=== PATIENT | female | born 1970 | race African-American/Black ===

== ENCOUNTER 2018-06-20 11:18 | Emergency (ER) | payer BC ==
[~2018-06-20] VITALS: Ht 160 cm; Wt 99.8 kg
[~2018-06-20 11:18] MED LIST: LOSA1TAB25 PO
--- NOTE | 2018-06-20 11:54 | EKG ---
[facility] [address] [place] [address] Test Date: 2018-06-20 Test Time: 11:26:23 Pat Name: DEYVI FRANCO Department: Room: Gender: F Felt Finishing Supervisor: : 1970 Requested By: ESTEVAN BARNES Order Number: [id number] Reading MD: Alexandre Johnson Measurements Intervals [place] Rate: 70 P: 0 AL: 144 QRS: 29 QRSD: 70 T: 26 QT: 416 QTc: 452 Interpretive Statements SINUS RHYTHM Electronically Signed On 07-12-2018 12:14:33 CDT by Alexandre Johnson
[2018-06-20 11:59] LABS: BASO # 0.1 x10^3/uL (0.0-0.2); BASO % 1 % (0-3); EOS # 0.1 x10^3/uL (0.0-0.7); EOS % 1 % (0-3); HEMATOCRIT 39.2 % (36.0-47.0); HEMOGLOBIN 12.5 g/dL (12.0-15.5); LYMPH # 3.5 x10^3/uL (1.0-4.8); LYMPH % 31 % (24-48); MEAN CORPUSCULAR HEMOGLOBIN 27 pg (25-35); MEAN CORPUSCULAR HGB CONC 32 g/dL (31-37); MEAN CORPUSCULAR VOLUME 85 fL (79-100); MONO # 0.6 x10^3/uL (0.0-1.1); MONO % 6 % (0-9); NEUT % 62 % (31-73); PLATELET COUNT 408 x10^3/uL (140-400); RED BLOOD COUNT 4.63 x10^6/uL (3.50-5.40); RED CELL DISTRIBUTION WIDTH 13.7 % (11.5-14.5); WHITE BLOOD COUNT 11.4 x10^3/uL (4.0-11.0)
[2018-06-20] MEDS ORDERED: ASPIRIN 325 MG TABLET PO ONE (12:00)
[2018-06-20] MEDS ORDERED: IV NORMAL SALINE 1000ML BAG 1,000 ML IV ONE (12:00)
[2018-06-20 12:08] LABS: PROTHROMBIN TIME PATIENT 13.2 SEC (11.7-14.0)
[2018-06-20 12:18] LABS: CALCIUM 8.9 mg/dL (8.5-10.1); CREATININE 0.9 mg/dL (0.6-1.0); GFR 80.9; POTASSIUM 3.9 mmol/L (3.5-5.1)
[2018-06-20 12:24] LABS: ALBUMIN 3.2 g/dL (3.4-5.0); ALBUMIN/GLOBULIN RATIO 0.7 (1.0-1.7); MAGNESIUM 2.1 mg/dL (1.8-2.4); TOTAL BILIRUBIN 0.5 mg/dL (0.2-1.0)
[2018-06-20 12:32] LABS: CREATINE KINASE 135 U/L (26-192)
--- NOTE | 2018-06-20 12:55 | RAD ---
Two-view chest dated 06/20/2018. Comparison made to 10/22/2007. CLINICAL INDICATION: Chest pain and left arm pain started today. FINDINGS: PA and lateral views of the chest were obtained. Heart and mediastinal contours are stable. Lungs are somewhat hyperinflated but otherwise clear. No consolidation or pleural effusion. No pneumothorax. IMPRESSION: No acute radiographic abnormality. Electronically signed by: Mert Solano MD (06/20/2018 12:52 PM) [facility]
[2018-06-20] MEDS ORDERED: FAMOTIDINE 20 MG/2 ML VIAL IVP ONE (13:00)
[2018-06-20] MEDS ORDERED: LIDO:MAALOX 1:1 20 ML SINGLE DOSE. PO ONE (13:00)
--- NOTE | 2018-06-20 13:43 | PHYS DOC ---
Past Medical History Past Medical History: GERD, Hypertension Past Surgical History: Hysterectomy, Tubal ligation Additional Past Surgical Histo: right ankle Alcohol Use: Occasionally Drug Use: None Adult General Chief Complaint Chief Complaint: CHEST PAIN HPI HPI Patient is a 48 year old female who presents with chest pain since approximately 9:30 this morning. She states she was resting in her recliner when the pain began. She describes the pain as being sharp, intermittent and up to a 9/10 in severity. She states the pain radiates to her left shoulder and back. She states the pain is unchanged since arriving. She states she is more comfortable when supine. She denies any nausea vomiting fever or chills. She denies any burning or metallic taste in mouth. She admits to increased headache and diarrhea this morning as well. No other complaints at this time. Review of Systems Review of Systems Constitutional: Denies fever or chills [] Eyes: Denies change in visual acuity, redness, or eye pain [] HENT: Denies nasal congestion or sore throat [] Respiratory: Denies cough or shortness of breath [] Cardiovascular: Sharp, intermittent chest pain. radiating to left shoulder. GI: Denies abdominal pain, nausea, vomiting, bloody stools or diarrhea [] : Denies dysuria or hematuria [] Musculoskeletal: Upper back pain that began with the chest pain. Integument: Denies rash or skin lesions [] Neurologic: Denies headache, focal weakness or sensory changes [] Complete systems were reviewed and found to be within normal limits, except as documented in this note. Current Medications Current Medications Current Medications Medications (Trade) Dose Ordered Sig/[facility] Start Time Stop Time Status Last Admin Dose Admin Aspirin (Marcos Aspirin) 325 mg 1X ONCE 06/20/18 12:00 06/20/18 12:01 DC 06/20/18 11:55 325 MG Famotidine (Pepcid Vial) 20 mg 1X ONCE 06/20/18 13:00 06/20/18 13:01 DC 06/20/18 13:39 20 MG Fentanyl Citrate (Fentanyl 2ml Vial) 50 mcg 1X ONCE 06/20/18 14:00 06/20/18 14:05 DC 06/20/18 14:15 50 MCG Multi-Ingredient Mouthwash/Gargle (Gi Cocktail) 20 ml 1X ONCE 06/20/18 13:00 06/20/18 13:01 DC 06/20/18 13:39 20 ML Sodium Chloride 1,000 ml @ 1,000 mls/hr 1X ONCE 06/20/18 12:00 06/20/18 12:59 DC 06/20/18 11:55 1,000 MLS/HR Allergies Allergies Allergies Coded Allergies Type Severity Reaction Last Updated Verified No Known Drug Allergies 05/09/15 No Physical Exam Physical Exam Constitutional: Well developed, well nourished, no acute distress, non-toxic appearance. [] HENT: Normocephalic, atraumatic, bilateral external ears normal, oropharynx moist, no oral exudates, nose normal. [] Eyes: EOMI, conjunctiva normal, no discharge. [] Cardiovascular: Heart rate regular rhythm, no murmur [] Lungs & Thorax: Bilateral breath sounds clear to auscultation [] Abdomen: soft, no tenderness, no masses, no pulsatile masses. [] Skin: Warm, dry, no erythema, no rash. [] Back: Diffuse, mild tenderness, no CVA tenderness. [] Extremities: No tenderness, no cyanosis, no clubbing, ROM intact, no edema. [] Neurologic: Alert and oriented X 3, normal motor function, normal sensory function, no focal deficits noted. [] Psychologic: Affect normal, judgement normal, mood normal. [] Current Patient Data Vital Signs Vital Signs Date Time Temp Pulse Resp B/P (MAP) Pulse Ox O2 Delivery O2 Flow Rate FiO2 06/20/18 16:00 62 145/81 (102) 100 Room Air 06/20/18 14:15 16 06/20/18 11:39 98.4 98.4 Lab Values Laboratory Tests Test 06/20/18 11:33 06/20/18 13:35 06/20/18 14:57 White Blood Count 11.4 x10^3/uL (4.0-11.0) H Red Blood Count 4.63 x10^6/uL (3.50-5.40) Hemoglobin 12.5 g/dL (12.0-15.5) Hematocrit 39.2 % (36.0-47.0) Mean Corpuscular Volume 85 fL (79-100) Mean Corpuscular Hemoglobin 27 pg (25-35) Mean Corpuscular Hemoglobin Concent 32 g/dL (31-37) Red Cell Distribution Width 13.7 % (11.5-14.5) Platelet Count 408 x10^3/uL (140-400) H Neutrophils (%) (Auto) 62 % (31-73) Lymphocytes (%) (Auto) 31 % (24-48) Monocytes (%) (Auto) 6 % (0-9) Eosinophils (%) (Auto) 1 % (0-3) Basophils (%) (Auto) 1 % (0-3) Neutrophils # (Auto) 7.0 x10^3uL (1.8-7.7) Lymphocytes # (Auto) 3.5 x10^3/uL (1.0-4.8) Monocytes # (Auto) 0.6 x10^3/uL (0.0-1.1) Eosinophils # (Auto) 0.1 x10^3/uL (0.0-0.7) Basophils # (Auto) 0.1 x10^3/uL (0.0-0.2) Prothrombin Time 13.2 SEC (11.7-14.0) Prothrombin Time INR 1.0 (0.8-1.1) PTT 34 SEC (24-38) D-Dimer (Candelaria) 0.47 ug/mlFEU (0.00-0.50) Sodium Level 140 mmol/L (136-145) Potassium Level 3.9 mmol/L (3.5-5.1) Chloride Level 103 mmol/L (98-107) Carbon Dioxide Level 26 mmol/L (21-32) Anion Gap 11 (6-14) Blood Urea Nitrogen 11 mg/dL (7-20) Creatinine 0.9 mg/dL (0.6-1.0) Estimated GFR (Cockcroft-Gault) 80.9 BUN/Creatinine Ratio 12 (6-20) Glucose Level 98 mg/dL (70-99) Calcium Level 8.9 mg/dL (8.5-10.1) Magnesium Level 2.1 mg/dL (1.8-2.4) Total Bilirubin 0.5 mg/dL (0.2-1.0) Aspartate Amino Transferase (AST) 23 U/L (15-37) Alanine Aminotransferase (ALT) 24 U/L (14-59) Alkaline Phosphatase 63 U/L (46-116) Creatine Kinase 135 U/L (26-192) Creatine Kinase MB (Mass) < 0.5 ng/mL (0.0-3.6) Creatine Kinase MB Relative Index % (0-4) Troponin I Quantitative < 0.017 ng/mL (0.000-0.055) 0.020 ng/mL (0.000-0.055) DS-Qyi-A-Type Natriuretic Peptide 19 pg/mL (0-124) Total Protein 8.0 g/dL (6.4-8.2) Albumin 3.2 g/dL (3.4-5.0) L Albumin/Globulin Ratio 0.7 (1.0-1.7) L Lipase 111 U/L (73-393) Urine Collection Type Unknown Urine Color Yellow Urine Clarity Clear Urine pH 8.0 Urine Specific [place] 1.010 Urine Protein Negative mg/dL (NEG-TRACE) Urine Glucose (UA) Negative mg/dL (NEG) Urine Ketones (Stick) Negative mg/dL (NEG) Urine Blood Negative (NEG) Urine Nitrite Negative (NEG) Urine Bilirubin Negative (NEG) Urine Urobilinogen Dipstick 1.0 mg/dL (0.2 mg/dL) Urine Leukocyte Esterase Negative (NEG) Urine RBC 0 /HPF (0-2) Urine WBC Occ /HPF (0-4) Urine Squamous Epithelial Cells Mod /LPF Urine Bacteria 0 /HPF (0-FEW) Laboratory Tests 06/20/18 11:33 Laboratory Tests 06/20/18 11:33 EKG EKG 06/20/2018 @11:26 showed Normal sinus rhythm at [address] elevations. No other abnormalities. Radiology/Procedures Radiology/Procedures PROCEDURE: CHEST PA & LATERAL Two-view chest dated 06/20/2018. Comparison made to 10/22/2007. CLINICAL INDICATION: Chest pain and left arm pain started today. FINDINGS: PA and lateral views of the chest were obtained. Heart and mediastinal contours are stable. Lungs are somewhat hyperinflated but otherwise clear. No consolidation or pleural effusion. No pneumothorax. IMPRESSION: No acute radiographic abnormality. Electronically signed by: Mert Solano MD (06/20/2018 12:52 PM) [facility] DICTATED and SIGNED BY: MERT SOLANO MD DATE: 06/20/18 0572 Course & Med Decision Making Course & Med Decision Making Patient is a 48-year-old female with a past medical history of hypertension and GERD who presents with chest pain that began this morning at rest. EKG was reassuring. Chest x-ray ordered and found no acute abnormalities. Initial troponin was within normal range. Patient administered IV fluids, Zofran, GI cocktail, ASA, and 50mg of Fentanyl 1x for non-relenting pain. Patient was ad vised to be admitted due to continuing pain and number of risk factors. However, patient refused admittance and would like to go home. Patient understands she is going AMA. Dragon Disclaimer Dragon Disclaimer This electronic medical record was generated, in whole or in part, using a voice recognition dictation system. Departure Departure Impression: Primary Impression: Chest pain Disposition: HOME, SELF-CARE Condition: STABLE Referrals: GUI GARY MD (PCP) SURENDRA LAWRENCE MD, SCOTT S MD Patient Instructions: Chest Pain (Nonspecific) Scripts Famotidine (PEPCID) 20 Mg Tablet 20 MG PO BID, #14 TAB Prov: MERT BARNES DO 06/20/18 Problem Qualifiers Primary Impression: Chest pain Chest pain type: unspecified Qualified Codes: R07.9 - Chest pain, unspecified MERT BARNES DO June 20, 2018 13:43
[2018-06-20 13:53] LABS: BILIRUBIN,URINE NEGATIVE (NEG); CLARITY,URINE CLEAR; COLOR,URINE YELLOW; NITRITE,URINE NEGATIVE (NEG); PROTEIN,URINE NEGATIVE (NEG-TRACE)
[2018-06-20] MEDS ORDERED: fentaNYL PF VIAL 100 MCG/2 ML VIAL IV ONE (14:00)
[2018-06-20 14:03] LABS: BACTERIA,URINE 0 /HPF (0-FEW); RBC,URINE 0 /HPF (0-2); SQUAMOUS EPITHELIAL CELL,UR MOD /LPF; WBC,URINE OCC /HPF (0-4)
[2018-06-20] MEDS ORDERED: FAMO-63 PO (15:45)
[2018-06-20 16:00] VITALS: BP 145/81
== END 2018-06-20 16:13 | disposition home or self-care (01) ==
LOC: ER 11:18
DX: R07.89 Other chest pain (principal); M54.6 Pain in thoracic spine; R19.7 Diarrhea, unspecified; K21.9 Gastro-esophageal reflux disease without esophagitis; I10 Essential (primary) hypertension; Z90.710 Acquired absence of both cervix and uterus; Z98.51 Tubal ligation status; Z79.82 Long term (current) use of aspirin
CPT/HCPCS: 36415; 71046; 80053; 81001; 82553; 83690; 83735; 83880; 84484; 85025; 85379; 85610; 85730; 93005; 96361; 96374; 96375; 99285; J3010; J3490; J7030

== ENCOUNTER 2018-12-01 21:02 | Observation (INO) | payer BC ==
[~2018-12-01] VITALS: Ht 162.6 cm; Wt 108.6 kg
[~2018-12-01 21:02] MED LIST changes: +FAMO-63 PO
[2018-12-01] MEDS ORDERED: ASPIRIN 325 MG TABLET PO ONE (21:30)
[2018-12-01] MEDS ORDERED: IV NORMAL SALINE 1000ML BAG 1,000 ML IV ONE (21:30)
[2018-12-01 21:45] LABS: BASO # 0.1 x10^3/uL (0.0-0.2); BASO % 1 % (0-3); EOS # 0.2 x10^3/uL (0.0-0.7); EOS % 3 % (0-3); HEMATOCRIT 38.2 % (36.0-47.0); HEMOGLOBIN 12.5 g/dL (12.0-15.5); LYMPH # 3.5 x10^3/uL (1.0-4.8); LYMPH % 37 % (24-48); MEAN CORPUSCULAR HEMOGLOBIN 27 pg (25-35); MEAN CORPUSCULAR HGB CONC 33 g/dL (31-37); MEAN CORPUSCULAR VOLUME 84 fL (79-100); MONO # 0.7 x10^3/uL (0.0-1.1); MONO % 7 % (0-9); NEUT % 52 % (31-73); PLATELET COUNT 381 x10^3/uL (140-400); RED BLOOD COUNT 4.56 x10^6/uL (3.50-5.40); RED CELL DISTRIBUTION WIDTH 13.9 % (11.5-14.5); WHITE BLOOD COUNT 9.6 x10^3/uL (4.0-11.0)
[2018-12-01 21:54] LABS: CALCIUM 8.6 mg/dL (8.5-10.1); GFR 71.6; POTASSIUM 3.6 mmol/L (3.5-5.1); PROTHROMBIN TIME PATIENT 12.4 SEC (11.7-14.0)
[2018-12-01 21:59] LABS: ALBUMIN/GLOBULIN RATIO 0.6 (1.0-1.7); TOTAL BILIRUBIN 0.2 mg/dL (0.2-1.0); TOTAL PROTEIN 7.7 g/dL (6.4-8.2)
[2018-12-01] MEDS ORDERED: fentaNYL PF VIAL 100 MCG/2 ML VIAL IV ONE (22:00)
[2018-12-01 22:03] LABS: CREATINE KINASE 150 U/L (26-192)
[2018-12-01] MEDS ORDERED: ONDANSETRON PF 4 MG/2 ML VIAL. IV PRN (22:30)
[2018-12-01] MEDS ORDERED: MORPHINE SULFATE 4 MG/ML VIAL. IV PRN (22:30)
[2018-12-01] MEDS ORDERED: CONTRAST GIVEN. MC PRN (22:45)
--- NOTE | 2018-12-01 22:48 | RAD ---
Exam: CTA chest with contrast INDICATION: Chest pain TECHNIQUE: Sequential axial images through the chest obtained following the administration of 100 mL of Omni 350 IV contrast. Sagittal and coronal reformatted images were reconstructed from the axial data and reviewed. Comparisons: None FINDINGS: Visualized portions of the thyroid are unremarkable. No enlarged mediastinal lymph nodes are identified. Several calcified hilar lymph nodes are noted. Heart size is normal. No pericardial effusion. Thoracic aorta has a normal course and caliber. Pulmonary artery is not enlarged. No pulmonary embolus identified within the main, lobar or segmental pulmonary arteries. Airways are patent. Strandy opacities at the dependent portion the lung bases. 3 mm nodule left upper lobe series 3 image 36. No pleural effusion or thickening. Visualized upper abdomen is unremarkable. No suspicious osseous lesions or acute fractures. IMPRESSION: 1. No pulmonary embolus identified within the main, lobar, segmental pulmonary arteries. 2. A 3 mm nodule in the left upper lobe. In a low-risk patient no further follow-up imaging is recommended. In a high-risk patient optional one-year follow-up can BE performed. Exposure: One or more of the following in the visualized dose reduction techniques were utilized for this examination: 1. Automated exposure control 2. Adjustment of the MA and/or KV according to patient size 3. Use of iterative of reconstructive technique Electronically signed by: Coral Chavis MD (12/01/2018 10:45 PM) [facility]
[2018-12-01] MEDS ORDERED: FAMOTIDINE 20 MG/2 ML VIAL IVP ONE (23:00)
[2018-12-01] MEDS ORDERED: ONDANSETRON PF 4 MG/2 ML VIAL. IVP ONE (23:00)
[2018-12-01] MEDS ORDERED: IOHEXOL 350 MG/ML 100 ML VIAL. IV ONE (23:00)
[2018-12-01] MEDS ORDERED: MORPHINE SULFATE 4 MG/ML VIAL. IV ONE (23:00)
--- NOTE | 2018-12-01 23:02 | PHYS DOC ---
Past Medical History Past Medical History: Hypertension Past Surgical History: Hysterectomy Additional Past Surgical Histo: right ankle Additional Information: Nonsmoker Alcohol Use: None Drug Use: None Adult General Chief Complaint Chief Complaint: CHEST PAIN HPI HPI 48-year-old female presents with one-week history of intermittent left-sided chest pain. Reports sharp in nature and worse with deep inspiration. Denies cough. Reports shortness of breath. Reports diaphoresis. Denies nausea or vomiting. Denies leg swelling or calf tenderness. Patient with significant risk factors including family history of CAD in multiple members in there late 40s and early 50s. Patient reports sister with history of DVT. Denies trauma. Denies fever or chills. Review of Systems Review of Systems Constitutional: Denies fever or chills Eyes: Denies redness or eye pain HENT: Denies nasal congestion or sore throat Respiratory: Denies cough; reports shortness of breath Cardiovascular: Reports chest pain; denies palpitations GI: Denies abdominal pain, nausea, or vomiting : Denies dysuria or hematuria Musculoskeletal: Denies back pain or joint pain Integument: Denies rash or skin lesions; reports diaphoresis Neurologic: Denies headache, focal weakness or sensory changes Complete systems were reviewed and found to be within normal limits, except as documented in this note. Current Medications Current Medications Current Medications Medications (Trade) Dose Ordered Sig/[facility] Start Time Stop Time Status Last Admin Dose Admin Aspirin (Marcos Aspirin) 325 mg 1X ONCE 12/01/18 21:30 12/01/18 21:31 DC 12/01/18 21:36 325 MG Fentanyl Citrate (Fentanyl 2ml Vial) 50 mcg 1X ONCE 12/01/18 22:00 12/01/18 22:01 DC 12/01/18 21:50 50 MCG Sodium Chloride 1,000 ml @ 1,000 mls/hr 1X ONCE 12/01/18 21:30 12/01/18 22:29 DC 12/01/18 21:36 1,000 MLS/HR Allergies Allergies Allergies Coded Allergies Type Severity Reaction Last Updated Verified No Known Drug Allergies 05/09/15 No Physical Exam Physical Exam Constitutional: Well developed, well nourished, no acute distress, non-toxic appearance HENT: Normocephalic, atraumatic, oropharynx moist Eyes: Conjunctiva normal, no discharge Neck: Normal range of motion, no tenderness, supple Cardiovascular: Heart rate normal, regular rhythm Lungs & Thorax: Bilateral breath sounds clear to auscultation, no wheezing Abdomen: Soft, no tenderness Skin: Warm, dry, no erythema, no rash Extremities: No tenderness, ROM intact, no edema Neurologic: Alert and oriented X 3, no focal deficits noted Psychologic: Affect anxious, judgement normal Current Patient Data Vital Signs Vital Signs Date Time Temp Pulse Resp B/P (MAP) Pulse Ox O2 Delivery O2 Flow Rate FiO2 12/01/18 21:50 24 97 12/01/18 21:10 98.5 65 171/79 (109) Room Air 98.5 Lab Values Laboratory Tests Test 12/01/18 21:20 White Blood Count 9.6 x10^3/uL (4.0-11.0) Red Blood Count 4.56 x10^6/uL (3.50-5.40) Hemoglobin 12.5 g/dL (12.0-15.5) Hematocrit 38.2 % (36.0-47.0) Mean Corpuscular Volume 84 fL (79-100) Mean Corpuscular Hemoglobin 27 pg (25-35) Mean Corpuscular Hemoglobin Concent 33 g/dL (31-37) Red Cell Distribution Width 13.9 % (11.5-14.5) Platelet Count 381 x10^3/uL (140-400) Neutrophils (%) (Auto) 52 % (31-73) Lymphocytes (%) (Auto) 37 % (24-48) Monocytes (%) (Auto) 7 % (0-9) Eosinophils (%) (Auto) 3 % (0-3) Basophils (%) (Auto) 1 % (0-3) Neutrophils # (Auto) 5.0 x10^3/uL (1.8-7.7) Lymphocytes # (Auto) 3.5 x10^3/uL (1.0-4.8) Monocytes # (Auto) 0.7 x10^3/uL (0.0-1.1) Eosinophils # (Auto) 0.2 x10^3/uL (0.0-0.7) Basophils # (Auto) 0.1 x10^3/uL (0.0-0.2) Prothrombin Time 12.4 SEC (11.7-14.0) Prothrombin Time INR 1.0 (0.8-1.1) Activated Partial Thromboplast Time 33 SEC (24-38) Sodium Level 143 mmol/L (136-145) Potassium Level 3.6 mmol/L (3.5-5.1) Chloride Level 107 mmol/L (98-107) Carbon Dioxide Level 27 mmol/L (21-32) Anion Gap 9 (6-14) Blood Urea Nitrogen 18 mg/dL (7-20) Creatinine 1.0 mg/dL (0.6-1.0) Estimated GFR (Cockcroft-Gault) 71.6 BUN/Creatinine Ratio 18 (6-20) Glucose Level 121 mg/dL (70-99) H Calcium Level 8.6 mg/dL (8.5-10.1) Magnesium Level 2.0 mg/dL (1.8-2.4) Total Bilirubin 0.2 mg/dL (0.2-1.0) Aspartate Amino Transferase (AST) 17 U/L (15-37) Alanine Aminotransferase (ALT) 17 U/L (14-59) Alkaline Phosphatase 54 U/L (46-116) Creatine Kinase 150 U/L (26-192) Creatine Kinase MB (Mass) 0.5 ng/mL (0.0-3.6) Creatine Kinase MB Relative Index % (0-4) Troponin I Quantitative < 0.017 ng/mL (0.000-0.055) UB-Wcw-S-Type Natriuretic Peptide 35 pg/mL (0-124) Total Protein 7.7 g/dL (6.4-8.2) Albumin 3.0 g/dL (3.4-5.0) L Albumin/Globulin Ratio 0.6 (1.0-1.7) L Lipase 104 U/L (73-393) Laboratory Tests 12/01/18 21:20 Laboratory Tests 12/01/18 21:20 EKG EKG @2106 NSR at 65bpm, No ST elevation @2305 NSR at 58bpm, NO ST elevation, baseline artifact, low voltage QRS Radiology/Procedures Radiology/Procedures PROCEDURE: CT ANGIOGRAPHY CHEST Exam: CTA chest with contrast INDICATION: Chest pain TECHNIQUE: Sequential axial images through the chest obtained following the administration of 100 mL of Omni 350 IV contrast. Sagittal and coronal reformatted images were reconstructed from the axial data and reviewed. Comparisons: None FINDINGS: Visualized portions of the thyroid are unremarkable. No enlarged mediastinal lymph nodes are identified. Several calcified hilar lymph nodes are noted. Heart size is normal. No pericardial effusion. Thoracic aorta has a normal course and caliber. Pulmonary artery is not enlarged. No pulmonary embolus identified within the main, lobar or segmental pulmonary arteries. Airways are patent. Strandy opacities at the dependent portion the lung bases. 3 mm nodule left upper lobe series 3 image 36. No pleural effusion or thickening. Visualized upper abdomen is unremarkable. No suspicious osseous lesions or acute fractures. IMPRESSION: 1. No pulmonary embolus identified within the main, lobar, segmental pulmonary arteries. 2. A 3 mm nodule in the left upper lobe. In a low-risk patient no further follow-up imaging is recommended. In a high-risk patient optional one-year follow-up can BE performed. Exposure: One or more of the following in the visualized dose reduction techniques were utilized for this examination: 1. Automated exposure control 2. Adjustment of the MA and/or KV according to patient size 3. Use of iterative of reconstructive technique Electronically signed by: Coral Chavis MD (12/01/2018 10:45 PM) [facility] Course & Med Decision Making Course & Med Decision Making Pertinent Labs and Imaging studies reviewed. (See chart for details) Patient presents with left-sided chest pain which is pleuritic in nature. Denies known trauma. Patient seen back in June 2018 for same and was offered admission given significant family history of CAD. Patient at that time elected to leave AGAINST MEDICAL ADVICE. EKG stable. Labs obtained and posted to chart. Initial troponin within normal limits. CTA chest without signs of acute PE. Incidental pulmonary nodule appreciated. A copy of CT results provided to patient to give to PCP for future reevaluation.Patient requiring admission for further evaluation and treatment. Discussed with Dr. Cortés (hospitalist) who is in agreement with admission. Discussed findings and plan with patient, who acknowledges understanding and agreement. Dragon Disclaimer Dragon Disclaimer This electronic medical record was generated, in whole or in part, using a voice recognition dictation system. Departure Departure Impression: Primary Impression: Chest pain Disposition: ADMITTED INPATIENT Admitting Physician: MALOU (Milana) Condition: STABLE Referrals: GUI GARY MD (PCP) The HEART Score for CP Pts HEART Score for Chest Pain: HEART Score for Chest Pain Response (Comments) Value History Moderately Suspicious 1 ECG Normal 0 Age >45 - < 65 1 Risk Factors 1 or 2 Risk Factors 1 Troponin < Normal Limit 0 Total 3 Risk Factors: Risk Factors: DM, Current or recent (<one month) smoker, HTN, HLP, family history of CAD, obesity. Risk Scores: Score 0 - 3: 2.5% MACE over next 6 weeks - Discharge Home Score 4 - 6: 20.3% MACE over next 6 weeks - Admit for Clinical Observation Score 7 - 10: 72.7% MACE over next 6 weeks - Early Invasive Strategies Problem Qualifiers Primary Impression: Chest pain Chest pain type: unspecified Qualified Codes: R07.9 - Chest pain, unspecified ESTEVAN BARNES DO Dec 01, 2018 23:01
[2018-12-01] MEDS ORDERED: diphenhydrAMINE 50 MG/ML VIAL IVP ONE (23:45)
[2018-12-01] MEDS ORDERED: METOCLOPRAMIDE HCL 10 MG/2 ML VIAL. IVP ONE (23:45)
[2018-12-02 00:15] VITALS: BP 157/65
--- NOTE | 2018-12-02 00:45 | EKG ---
[facility] [address] [place] [address] Test Date: 2018-12-02 Test Time: 01:41:21 Pat Name: DEYVI ARAIZA Department: Room: 208 1 Gender: F Lead Web Developer: JOHN : 1970 Requested By: ESTEVAN BARNES Order Number: [id number] Reading MD: Andres Fitzpatrick MD Measurements Intervals [place] Rate: 63 P: 0 MT: 158 QRS: 28 QRSD: 68 T: 36 QT: 468 QTc: 482 Interpretive Statements SINUS RHYTHM PROLONGED QT Electronically Signed On 12-16-2018 9:25:11 DIRECTOR OF FOOD AND NUTRITION by Andres Fitzpatrick MD
--- NOTE | 2018-12-02 01:17 | NUR ---
Pt arrived to unit per cart. Pt ambulated to bed with standby assist vs obtained and stable assessment completed poc explained. Pt drowsy at time of assessment bed alarm placed call belinda bloom reach will resume care and continue to monitor pt, Pt c/o pain to mid chest 6/10 pt medicated prior to transfer to unit.
[2018-12-02 03:15] VITALS: BP 142/77
[2018-12-02 06:41] LABS: CHOLESTEROL/HDL RATIO 3.1
[2018-12-02 07:00] VITALS: BP 133/70
--- NOTE | 2018-12-02 07:04 | EKG ---
[facility] [address] [place] [address] Test Date: 2018-12-01 Test Time: 21:06:53 Pat Name: DEYVI ARAIZA Department: Room: 208 1 Gender: F Grader Green Meat: : 1970 Requested By: ESTEVAN BARNES Order Number: [id number] Reading MD: Andres Fitzpatrick MD Measurements Intervals [place] Rate: 65 P: 0 [place]: 146 QRS: 9 QRSD: 70 T: 36 QT: 404 QTc: 420 Interpretive Statements SINUS RHYTHM Electronically Signed On 12-02-2018 15:03:30 CDT by Andres Fitzpatrick MD
--- NOTE | 2018-12-02 07:54 | EKG ---
[facility] [address] [place] [address] Test Date: 2018-12-01 Test Time: 23:05:12 Pat Name: DEYVI ARAIZA Department: Room: 208 1 Gender: F Commercial Collector: : 1970 Requested By: DONAVON HOFFMAN Order Number: [id number] Reading MD: Andres Fitzpatrick MD Measurements Intervals [place] Rate: 58 P: OR: QRS: 19 QRSD: 72 T: 20 QT: 482 QTc: 477 Interpretive Statements SR Q3L-ERAXYSAA ST/T CHANGES BASELINE ARTIFACT Electronically Signed On 12-16-2018 9:16:25 WEIGHT COUNT OPERATOR by Andres Fitzpatrick MD
[2018-12-02 11:00] VITALS: BP 144/77
--- NOTE | 2018-12-02 11:14 | PDOC2 ---
PERNELL BROOKS MANAGEMENT ACCOUNTS MANAGER 12/02/18 1114: CARDIAC CONSULT DATE OF CONSULT Date of Consult DATE: 12/02/18 TIME: 11:10 REASON FOR CONSULT Reason for Consult: Chest pain REFERRING PHYSICIAN Referring Physician: Dr. Magallon SOURCE Source: Chart review, Patient HISTORY OF PRESENT ILLNESS HISTORY OF PRESENT ILLNESS This is a 48 yo female who presented with complaints of chest pain. Patient reports pain has been present for the last couple of days. Located under her left breast and radiates around her left side. Has been constant. Associated with nausea. No dizziness, diaphoresis, palpitations, or shortness of breath. Pain worsened with deep breathing and with movement of her left side. Tenderness is also noted under her left breast. PAST MEDICAL HISTORY Cardiovascular: HTN GI: GERD Psych: Anxiety, Depression Musculoskeletal: Osteoarthritis PAST SURGICAL HISTORY Past Surgical History: Hysterectomy FAMILY HISTORY Family History: Coronary Artery Disease (mother, sister ), Stroke (father ) SOCIAL HISTORY Smoke: No ALCOHOL: none Drugs: None Lives: with Family CURRENT MEDICATIONS CURRENT MEDICATIONS Current Medications Medications (Trade) Dose Ordered Sig/Dora Route PRN Reason Start Time Stop Time Status Last Admin Dose Admin Aspirin (Marcos Aspirin) 325 mg 1X ONCE PO 12/01/18 21:30 12/01/18 21:31 DC 12/01/18 21:36 Sodium Chloride 1,000 ml @ 1,000 mls/hr 1X ONCE IV 12/01/18 21:30 12/01/18 22:29 DC 12/01/18 21:36 Fentanyl Citrate (Fentanyl 2ml Vial) 50 mcg 1X ONCE IV 12/01/18 22:00 12/01/18 22:01 DC 12/01/18 21:50 Morphine Sulfate (Morphine Sulfate) 4 mg 1X ONCE IV 12/01/18 23:00 12/01/18 23:01 DC 12/01/18 22:42 Famotidine (Pepcid Vial) 20 mg 1X ONCE IVP 12/01/18 23:00 12/01/18 23:01 DC 12/01/18 22:42 Ondansetron HCl (Zofran) 4 mg 1X ONCE IVP 12/01/18 23:00 12/01/18 23:01 DC 12/01/18 22:41 Iohexol (Omnipaque 350 Mg/ml) 100 ml 1X ONCE IV 12/01/18 23:00 12/01/18 23:01 DC 12/01/18 22:39 Morphine Sulfate (Morphine Sulfate) 4 mg PRN Q4HRS PRN IV SEVERE PAIN 7-10 12/01/18 22:30 12/02/18 08:26 Diphenhydramine HCl (Benadryl) 25 mg 1X ONCE IVP 12/01/18 23:45 12/01/18 23:46 DC 12/01/18 23:54 Metoclopramide HCl (Reglan Vial) 10 mg 1X ONCE IVP 12/01/18 23:45 12/01/18 23:46 DC 12/01/18 23:54 ALLERGIES ALLERGIES: Coded Allergies: No Known Drug Allergies (Unverified , 05/09/15) ROS Review of System 14 point ROS conducted with pertinent positives noted above in HPI. PHYSICAL EXAM General: Alert, Oriented X3, Cooperative, No acute distress HEENT: Atraumatic Lungs: Clear to auscultation, Normal air movement Heart: Regular rate, Normal S1, Normal S2, Other (tenderness under left breast upon palpitation) Abdomen: Soft, No tenderness Extremities: No edema, Normal pulses Skin: No breakdown, No significant lesion Neuro: Normal speech, Sensation intact Psych/Mental Status: Mental status NL, Mood NL MUSCULOSKELETAL: Osteoarthritic changes both hands VITALS/I&O VITALS/I&O: Vital Signs Date Time Temp Pulse Resp B/P (MAP) Pulse Ox O2 Delivery O2 Flow Rate FiO2 12/02/18 08:26 Room Air 12/02/18 07:00 97.6 62 16 133/70 (91) 95 97.6 I & O 12/01/18 12/01/18 12/02/18 15:00 23:00 07:00 Intake Total 0 ml Output Total 300 ml Balance -300 ml LABS Lab: Laboratory Tests Test 12/01/18 21:20 12/02/18 01:35 12/02/18 04:40 White Blood Count 9.6 x10^3/uL (4.0-11.0) Red Blood Count 4.56 x10^6/uL (3.50-5.40) Hemoglobin 12.5 g/dL (12.0-15.5) Hematocrit 38.2 % (36.0-47.0) Mean Corpuscular Volume 84 fL (79-100) Mean Corpuscular Hemoglobin 27 pg (25-35) Mean Corpuscular Hemoglobin Concent 33 g/dL (31-37) Red Cell Distribution Width 13.9 % (11.5-14.5) Platelet Count 381 x10^3/uL (140-400) Neutrophils (%) (Auto) 52 % (31-73) Lymphocytes (%) (Auto) 37 % (24-48) Monocytes (%) (Auto) 7 % (0-9) Eosinophils (%) (Auto) 3 % (0-3) Basophils (%) (Auto) 1 % (0-3) Neutrophils # (Auto) 5.0 x10^3/uL (1.8-7.7) Lymphocytes # (Auto) 3.5 x10^3/uL (1.0-4.8) Monocytes # (Auto) 0.7 x10^3/uL (0.0-1.1) Eosinophils # (Auto) 0.2 x10^3/uL (0.0-0.7) Basophils # (Auto) 0.1 x10^3/uL (0.0-0.2) Prothrombin Time 12.4 SEC (11.7-14.0) Prothrombin Time INR 1.0 (0.8-1.1) Activated Partial Thromboplast Time 33 SEC (24-38) Sodium Level 143 mmol/L (136-145) Potassium Level 3.6 mmol/L (3.5-5.1) Chloride Level 107 mmol/L (98-107) Carbon Dioxide Level 27 mmol/L (21-32) Anion Gap 9 (6-14) Blood Urea Nitrogen 18 mg/dL (7-20) Creatinine 1.0 mg/dL (0.6-1.0) Estimated GFR (Cockcroft-Gault) 71.6 BUN/Creatinine Ratio 18 (6-20) Glucose Level 121 mg/dL (70-99) H Calcium Level 8.6 mg/dL (8.5-10.1) Magnesium Level 2.0 mg/dL (1.8-2.4) Total Bilirubin 0.2 mg/dL (0.2-1.0) Aspartate Amino Transferase (AST) 17 U/L (15-37) Alanine Aminotransferase (ALT) 17 U/L (14-59) Alkaline Phosphatase 54 U/L (46-116) Creatine Kinase 150 U/L (26-192) Creatine Kinase MB (Mass) 0.5 ng/mL (0.0-3.6) Creatine Kinase MB Relative Index % (0-4) Troponin I Quantitative < 0.017 ng/mL (0.000-0.055) < 0.017 ng/mL (0.000-0.055) < 0.017 ng/mL (0.000-0.055) UJ-Ijp-W-Type Natriuretic Peptide 35 pg/mL (0-124) Total Protein 7.7 g/dL (6.4-8.2) Albumin 3.0 g/dL (3.4-5.0) L Albumin/Globulin Ratio 0.6 (1.0-1.7) L Lipase 104 U/L (73-393) Triglycerides Level 46 mg/dL (0-150) Cholesterol Level 169 mg/dL (0-200) LDL Cholesterol, Calculated 106 mg/dL (0-100) H VLDL Cholesterol, Calculated 9 mg/dL (0-40) Non-HDL Cholesterol Calculated 115 mg/dL (0-129) HDL Cholesterol 54 mg/dL (40-60) Cholesterol/HDL Ratio 3.1 Laboratory Tests 12/01/18 21:20 Laboratory Tests 12/01/18 21:20 ASSESSMENT/PLAN ASSESSMENT/PLAN 1. Chest pain, atypical. AMI ruled out. Most probably MSK in origin 2. Hypertension; better controlled 3. GERD 4. Family h/o CAD Recommendations Echo to assess LV systolic function Lipids Consider outpatient MPI given risk factors. May discharge from a CV standpoint if echo WNL SURENDRA LAWRENCE MD 12/02/18 2319: CARDIAC CONSULT ASSESSMENT/PLAN ASSESSMENT/PLAN Pt. seen and examined. Agree with above [facility] note. 48 y.o woman with non-cardiac chest pain. EKG/Trops unremarkable. Ok to DC from CV standpoint. thanks PERNELL BROOKS APRN Dec 02, 2018 11:14 SURENDRA LAWRENCE MD Dec 02, 2018 23:19
--- NOTE | 2018-12-02 12:03 | PDOC1 ---
History and Physical Date of Admission Date of Admission DATE: 12/02/18 TIME: 11:59 Identification/Chief Complaint Chief Complaint Chest pain Source Source: Patient History of Present Illness History of Present Illness Ms Tran is a 48yo F w/ PMHx HTN who p/w one-week history of intermittent left-sided chest pain. Reports sharp in nature and worse with deep inspiration. Denies cough. Reports shortness of breath. Reports diaphoresis. Denies nausea or vomiting. Denies leg swelling or calf tenderness. Chest pain is under her left breast and wraps around her left side and radiates posteriorly into her neck. 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 Patient with significant risk factors including family history of CAD in multiple members in there late 40s and early 50s. Patient reports sister with history of DVT. Denies trauma. Denies fever or chills. Negative CTPA noted in ED. EKG x2 reviewed both NSR. Labs show LDL 106, glucose 121 fasting and troponin x3 negative. Past Medical History Cardiovascular: HTN GI: GERD Past Surgical History Past Surgical History: Hysterectomy Current Medications Current Medications Current Medications Aspirin (Marcos Aspirin) 325 mg 1X ONCE PO Last administered on 12/01/18at 21:36; Start 12/01/18 at 21:30; Stop 12/01/18 at 21:31; Status DC Sodium Chloride 1,000 ml @ 1,000 mls/hr 1X ONCE IV Last administered on 12/01/18at 21:36; Start 12/01/18 at 21:30; Stop 12/01/18 at 22:29; Status DC Fentanyl Citrate (Fentanyl 2ml Vial) 50 mcg 1X ONCE IV Last administered on 12/01/18at 21:50; Start 12/01/18 at 22:00; Stop 12/01/18 at 22:01; Status DC Morphine Sulfate (Morphine Sulfate) 4 mg 1X ONCE IV Last administered on 12/01/18at 22:42; Start 12/01/18 at 23:00; Stop 12/01/18 at 23:01; Status DC Famotidine (Pepcid Vial) 20 mg 1X ONCE IVP Last administered on 12/01/18at 22:42; Start 12/01/18 at 23:00; Stop 12/01/18 at 23:01; Status DC Ondansetron HCl (Zofran) 4 mg 1X ONCE IVP Last administered on 12/01/18at 22:41; Start 12/01/18 at 23:00; Stop 12/01/18 at 23:01; Status DC Iohexol (Omnipaque 350 Mg/ml) 100 ml 1X ONCE IV Last administered on 12/01/18at 22:39; Start 12/01/18 at 23:00; Stop 12/01/18 at 23:01; Status DC Ondansetron HCl (Zofran) 4 mg PRN Q8HRS PRN IV NAUSEA/VOMITING 1ST CHOICE; Start 12/01/18 at 22:30; Stop 12/02/18 at 22:29 Morphine Sulfate (Morphine Sulfate) 4 mg PRN Q4HRS PRN IV SEVERE PAIN 7-10 Last administered on 12/02/18at 08:26; Start 12/01/18 at 22:30 Info (CONTRAST GIVEN -- Rx MONITORING) 1 each PRN DAILY PRN MC SEE COMMENTS; Start 12/01/18 at 22:45; Stop 12/03/18 at 22:44 Diphenhydramine HCl (Benadryl) 25 mg 1X ONCE IVP Last administered on 12/01/18at 23:54; Start 12/01/18 at 23:45; Stop 12/01/18 at 23:46; Status DC Metoclopramide HCl (Reglan Vial) 10 mg 1X ONCE IVP Last administered on 12/01/18at 23:54; Start 12/01/18 at 23:45; Stop 12/01/18 at 23:46; Status DC Active Scripts Active Reported Losartan-Hctz 100-12.5 Mg Tab (Losartan/Hydrochlorothiazide) 1 Each Tablet 1 Tab PO DAILY Allergies Allergies: Coded Allergies: No Known Drug Allergies (Unverified , 05/09/15) Vitals Vitals Vital Signs Date Time Temp Pulse Resp B/P (MAP) Pulse Ox O2 Delivery O2 Flow Rate FiO2 12/02/18 11:00 98.0 60 16 144/77 (99) 95 Room Air 98.0 Labs Labs Laboratory Tests Test 12/01/18 21:20 12/02/18 01:35 12/02/18 04:40 White Blood Count 9.6 x10^3/uL (4.0-11.0) Red Blood Count 4.56 x10^6/uL (3.50-5.40) Hemoglobin 12.5 g/dL (12.0-15.5) Hematocrit 38.2 % (36.0-47.0) Mean Corpuscular Volume 84 fL (79-100) Mean Corpuscular Hemoglobin 27 pg (25-35) Mean Corpuscular Hemoglobin Concent 33 g/dL (31-37) Red Cell Distribution Width 13.9 % (11.5-14.5) Platelet Count 381 x10^3/uL (140-400) Neutrophils (%) (Auto) 52 % (31-73) Lymphocytes (%) (Auto) 37 % (24-48) Monocytes (%) (Auto) 7 % (0-9) Eosinophils (%) (Auto) 3 % (0-3) Basophils (%) (Auto) 1 % (0-3) Neutrophils # (Auto) 5.0 x10^3/uL (1.8-7.7) Lymphocytes # (Auto) 3.5 x10^3/uL (1.0-4.8) Monocytes # (Auto) 0.7 x10^3/uL (0.0-1.1) Eosinophils # (Auto) 0.2 x10^3/uL (0.0-0.7) Basophils # (Auto) 0.1 x10^3/uL (0.0-0.2) Prothrombin Time 12.4 SEC (11.7-14.0) Prothromb Time International Ratio 1.0 (0.8-1.1) Activated Partial Thromboplast Time 33 SEC (24-38) Sodium Level 143 mmol/L (136-145) Potassium Level 3.6 mmol/L (3.5-5.1) Chloride Level 107 mmol/L (98-107) Carbon Dioxide Level 27 mmol/L (21-32) Anion Gap 9 (6-14) Blood Urea Nitrogen 18 mg/dL (7-20) Creatinine 1.0 mg/dL (0.6-1.0) Estimated GFR (Cockcroft-Gault) 71.6 BUN/Creatinine Ratio 18 (6-20) Glucose Level 121 mg/dL (70-99) Calcium Level 8.6 mg/dL (8.5-10.1) Magnesium Level 2.0 mg/dL (1.8-2.4) Total Bilirubin 0.2 mg/dL (0.2-1.0) Aspartate Amino Transf (AST/SGOT) 17 U/L (15-37) Alanine Aminotransferase (ALT/SGPT) 17 U/L (14-59) Alkaline Phosphatase 54 U/L (46-116) Creatine Kinase 150 U/L (26-192) Creatine Kinase MB (Mass) 0.5 ng/mL (0.0-3.6) Creatine Kinase MB Relative Index % (0-4) Troponin I Quantitative < 0.017 ng/mL (0.000-0.055) < 0.017 ng/mL (0.000-0.055) < 0.017 ng/mL (0.000-0.055) FU-Glx-I-Type Natriuretic Peptide 35 pg/mL (0-124) Total Protein 7.7 g/dL (6.4-8.2) Albumin 3.0 g/dL (3.4-5.0) Albumin/Globulin Ratio 0.6 (1.0-1.7) Lipase 104 U/L (73-393) Triglycerides Level 46 mg/dL (0-150) Cholesterol Level 169 mg/dL (0-200) LDL Cholesterol, Calculated 106 mg/dL (0-100) VLDL Cholesterol, Calculated 9 mg/dL (0-40) Non-HDL Cholesterol Calculated 115 mg/dL (0-129) HDL Cholesterol 54 mg/dL (40-60) Cholesterol/HDL Ratio 3.1 Laboratory Tests Test 12/01/18 21:20 12/02/18 01:35 12/02/18 04:40 White Blood Count 9.6 x10^3/uL (4.0-11.0) Red Blood Count 4.56 x10^6/uL (3.50-5.40) Hemoglobin 12.5 g/dL (12.0-15.5) Hematocrit 38.2 % (36.0-47.0) Mean Corpuscular Volume 84 fL (79-100) Mean Corpuscular Hemoglobin 27 pg (25-35) Mean Corpuscular Hemoglobin Concent 33 g/dL (31-37) Red Cell Distribution Width 13.9 % (11.5-14.5) Platelet Count 381 x10^3/uL (140-400) Neutrophils (%) (Auto) 52 % (31-73) Lymphocytes (%) (Auto) 37 % (24-48) Monocytes (%) (Auto) 7 % (0-9) Eosinophils (%) (Auto) 3 % (0-3) Basophils (%) (Auto) 1 % (0-3) Neutrophils # (Auto) 5.0 x10^3/uL (1.8-7.7) Lymphocytes # (Auto) 3.5 x10^3/uL (1.0-4.8) Monocytes # (Auto) 0.7 x10^3/uL (0.0-1.1) Eosinophils # (Auto) 0.2 x10^3/uL (0.0-0.7) Basophils # (Auto) 0.1 x10^3/uL (0.0-0.2) Prothrombin Time 12.4 SEC (11.7-14.0) Prothromb Time International Ratio 1.0 (0.8-1.1) Activated Partial Thromboplast Time 33 SEC (24-38) Sodium Level 143 mmol/L (136-145) Potassium Level 3.6 mmol/L (3.5-5.1) Chloride Level 107 mmol/L (98-107) Carbon Dioxide Level 27 mmol/L (21-32) Anion Gap 9 (6-14) Blood Urea Nitrogen 18 mg/dL (7-20) Creatinine 1.0 mg/dL (0.6-1.0) Estimated GFR (Cockcroft-Gault) 71.6 BUN/Creatinine Ratio 18 (6-20) Glucose Level 121 mg/dL (70-99) Calcium Level 8.6 mg/dL (8.5-10.1) Magnesium Level 2.0 mg/dL (1.8-2.4) Total Bilirubin 0.2 mg/dL (0.2-1.0) Aspartate Amino Transf (AST/SGOT) 17 U/L (15-37) Alanine Aminotransferase (ALT/SGPT) 17 U/L (14-59) Alkaline Phosphatase 54 U/L (46-116) Creatine Kinase 150 U/L (26-192) Creatine Kinase MB (Mass) 0.5 ng/mL (0.0-3.6) Creatine Kinase MB Relative Index % (0-4) Troponin I Quantitative < 0.017 ng/mL (0.000-0.055) < 0.017 ng/mL (0.000-0.055) < 0.017 ng/mL (0.000-0.055) FW-Odi-N-Type Natriuretic Peptide 35 pg/mL (0-124) Total Protein 7.7 g/dL (6.4-8.2) Albumin 3.0 g/dL (3.4-5.0) Albumin/Globulin Ratio 0.6 (1.0-1.7) Lipase 104 U/L (73-393) Triglycerides Level 46 mg/dL (0-150) Cholesterol Level 169 mg/dL (0-200) LDL Cholesterol, Calculated 106 mg/dL (0-100) VLDL Cholesterol, Calculated 9 mg/dL (0-40) Non-HDL Cholesterol Calculated 115 mg/dL (0-129) HDL Cholesterol 54 mg/dL (40-60) Cholesterol/HDL Ratio 3.1 Images Images CTPA - 1. No pulmonary embolus identified within the main, lobar, segmental pulmonary arteries. 2. A 3 mm nodule in the left upper lobe. In a low-risk patient no further follow-up imaging is recommended. In a high-risk patient optional one-year foll ow-up can BE performed. VTE Prophylaxis Ordered VTE Prophylaxis Devices: Yes VTE Pharmacological Prophylaxi: Yes Assessment/Plan Assessment/Plan A/P: Chest pain - this seems MSK in origin, but with her family history, age > 45 and HTN history needs further risk stratification with cardiology consultation and imaging at the very least. Echo to assess LV systolic function.Outpatient MPI HTN - Will cont meds HLD - with no other risk factors medical management is not indicated, should follow mediterranean diet. GERD - ok for H2 sue Muscular spasms - will start on flexeril and NSAIDs FEN - NPO PPX - ambulatory FULL CODE Observation for chest pain, will likely be able to d/c later today WAQAS JAIME MD Dec 02, 2018 12:02
--- NOTE | 2018-12-02 12:18 | NUR ---
SS following for discharge planning. SS reviewed pt chart. Pt is from home with spouse and is currently on room air. SS will continue to follow for discharge planning.
[2018-12-02] MEDS ORDERED: KETOROLAC 30 MG/ML VIAL. IVP ONE (12:30)
[2018-12-02] MEDS ORDERED: CYCL10TA2 PO (14:34)
[2018-12-02] MEDS ORDERED: CYCLOBENZAPRINE 10 MG TABLET. PO PRN (14:45)
[2018-12-02 15:00] VITALS: BP 158/81
--- NOTE | 2018-12-02 15:03 | CARD ---
MR#: [id number] Date of Study: 12/02/2018 Ordering Physician: PERNELL BROOKS, Referring Physician: PERNELL BROOKS, Tech: Petra Ahn [facility] APPROVED REPORT EXAM: Two-dimensional and M-mode echocardiogram with Doppler and color Doppler. Other Information Quality : Technically LimitedHR: 53bpm Rhythm : BradycardiaTechnically limited study due to body habitus. INDICATION Chest Pain 2D DIMENSIONS RVDd2.6 (2.9-3.5cm)Left Atrium(2D)3.0 (1.6-4.0cm) IVSd1.0 (0.7-1.1cm)Aortic Root(2D)2.8 (2.0-3.7cm) LVDd4.2 (3.9-5.9cm)LVOT Diameter2.0 (1.8-2.4cm) PWd1.1 (0.7-1.1cm)LVDs2.9 (2.5-4.0cm) FS (%) 31.3 %SV46.7 ml LVEF(%)59.5 (>50%) M-Mode DIMENSIONS Left Atrium(MM)3.46 (2.5-4.0cm)Aortic Root2.89 (2.2-3.7cm) Aortic Valve AoV Peak Boris.97.3cm/sAoV VTI21.9cm AO Peak GR.3.8mmHgLVOT Peak Boris.77.9cm/s AO Mean GR.2mmHgAVA (VMAX)2.49cm2 LAVERNE (VTI)2.55yk1QY P 1/2 Vvyw0956rs Mitral Valve MV E Lehohhak015.5cm/sMV DECEL NATH236mg MV A Nfexcurn13.0cm/sE/A Ratio1.2 Pulmonary Valve PV Peak Fjvgmwvx01.6cm/s LEFT VENTRICLE The left ventricle is normal size. There is normal left ventricular wall thickness. The left ventricu lar systolic function is normal. The Ejection Fraction is 55-60%. There is normal LV segmental wall m otion. RIGHT VENTRICLE The right ventricle is normal size. There is normal right ventricular wall thickness. The right ventr icular systolic function is normal. ATRIA The left atrium size is normal. The right atrium size is normal. The interatrial septum is intact wit h no evidence for an atrial septal defect or patent foramen ovale as noted on 2-D or Doppler imaging. AORTIC VALVE The aortic valve is probably trileaflet. The aortic valve is not well visualized. Doppler and Color F low revealed trace aortic regurgitation. There is no significant aortic valvular stenosis. MITRAL VALVE The mitral valve is normal in structure and function. There is no evidence of mitral valve prolapse. There is no mitral valve stenosis. Doppler and Color-flow revealed trace mitral regurgitation. TRICUSPID VALVE The tricuspid valve is not well visualized. Doppler and Color Flow revealed no tricuspid valve regurg itation noted. There is no tricuspid valve prolapse or vegetation. There is no tricuspid valve stenos is. PULMONIC VALVE The pulmonic valve is not well visualized. GREAT VESSELS The aortic root is normal in size. The ascending aorta is normal in size. The IVC is normal in size a nd collapses >50% with inspiration. PERICARDIAL EFFUSION There is no evidence of significant pericardial effusion. Critical Notification Critical Value: No <Conclusion> The left ventricular systolic function is normal. The Ejection Fraction is 55-60%. There is normal LV segmental wall motion. Trace mitral regurgitation. There is no evidence of significant pericardial effusion. Signed by : Alexandre Johnson, Electronically Approved : 12/02/2018 15:03:15
--- NOTE | 2018-12-02 15:59 | PDOC3 ---
Discharge Summary Visit Information Date of Admission: Dec 01, 2018 Date of Discharge: Dec 02, 2018 Admitting Diagnosis: Chest pain Final Diagnosis MSK pain Brief Hospital Course Allergies Allergies Coded Allergies Type Severity Reaction Last Updated Verified No Known Drug Allergies 05/09/15 No Vital Signs Vital Signs Date Time Temp Pulse Resp B/P (MAP) Pulse Ox O2 Delivery O2 Flow Rate FiO2 12/02/18 15:00 98.2 59 16 158/81 (106) 95 Room Air 98.2 Lab Results Laboratory Tests Test 12/01/18 21:20 12/02/18 01:35 12/02/18 04:40 White Blood Count 9.6 x10^3/uL (4.0-11.0) Red Blood Count 4.56 x10^6/uL (3.50-5.40) Hemoglobin 12.5 g/dL (12.0-15.5) Hematocrit 38.2 % (36.0-47.0) Mean Corpuscular Volume 84 fL (79-100) Mean Corpuscular Hemoglobin 27 pg (25-35) Mean Corpuscular Hemoglobin Concent 33 g/dL (31-37) Red Cell Distribution Width 13.9 % (11.5-14.5) Platelet Count 381 x10^3/uL (140-400) Neutrophils (%) (Auto) 52 % (31-73) Lymphocytes (%) (Auto) 37 % (24-48) Monocytes (%) (Auto) 7 % (0-9) Eosinophils (%) (Auto) 3 % (0-3) Basophils (%) (Auto) 1 % (0-3) Neutrophils # (Auto) 5.0 x10^3/uL (1.8-7.7) Lymphocytes # (Auto) 3.5 x10^3/uL (1.0-4.8) Monocytes # (Auto) 0.7 x10^3/uL (0.0-1.1) Eosinophils # (Auto) 0.2 x10^3/uL (0.0-0.7) Basophils # (Auto) 0.1 x10^3/uL (0.0-0.2) Prothrombin Time 12.4 SEC (11.7-14.0) Prothromb Time International Ratio 1.0 (0.8-1.1) Activated Partial Thromboplast Time 33 SEC (24-38) Sodium Level 143 mmol/L (136-145) Potassium Level 3.6 mmol/L (3.5-5.1) Chloride Level 107 mmol/L (98-107) Carbon Dioxide Level 27 mmol/L (21-32) Anion Gap 9 (6-14) Blood Urea Nitrogen 18 mg/dL (7-20) Creatinine 1.0 mg/dL (0.6-1.0) Estimated GFR (Cockcroft-Gault) 71.6 BUN/Creatinine Ratio 18 (6-20) Glucose Level 121 mg/dL (70-99) Calcium Level 8.6 mg/dL (8.5-10.1) Magnesium Level 2.0 mg/dL (1.8-2.4) Total Bilirubin 0.2 mg/dL (0.2-1.0) Aspartate Amino Transf (AST/SGOT) 17 U/L (15-37) Alanine Aminotransferase (ALT/SGPT) 17 U/L (14-59) Alkaline Phosphatase 54 U/L (46-116) Creatine Kinase 150 U/L (26-192) Creatine Kinase MB (Mass) 0.5 ng/mL (0.0-3.6) Creatine Kinase MB Relative Index % (0-4) Troponin I Quantitative < 0.017 ng/mL (0.000-0.055) < 0.017 ng/mL (0.000-0.055) < 0.017 ng/mL (0.000-0.055) PO-Mmz-L-Type Natriuretic Peptide 35 pg/mL (0-124) Total Protein 7.7 g/dL (6.4-8.2) Albumin 3.0 g/dL (3.4-5.0) Albumin/Globulin Ratio 0.6 (1.0-1.7) Lipase 104 U/L (73-393) Triglycerides Level 46 mg/dL (0-150) Cholesterol Level 169 mg/dL (0-200) LDL Cholesterol, Calculated 106 mg/dL (0-100) VLDL Cholesterol, Calculated 9 mg/dL (0-40) Non-HDL Cholesterol Calculated 115 mg/dL (0-129) HDL Cholesterol 54 mg/dL (40-60) Cholesterol/HDL Ratio 3.1 Laboratory Tests Test 12/01/18 21:20 12/02/18 01:35 12/02/18 04:40 White Blood Count 9.6 x10^3/uL (4.0-11.0) Red Blood Count 4.56 x10^6/uL (3.50-5.40) Hemoglobin 12.5 g/dL (12.0-15.5) Hematocrit 38.2 % (36.0-47.0) Mean Corpuscular Volume 84 fL (79-100) Mean Corpuscular Hemoglobin 27 pg (25-35) Mean Corpuscular Hemoglobin Concent 33 g/dL (31-37) Red Cell Distribution Width 13.9 % (11.5-14.5) Platelet Count 381 x10^3/uL (140-400) Neutrophils (%) (Auto) 52 % (31-73) Lymphocytes (%) (Auto) 37 % (24-48) Monocytes (%) (Auto) 7 % (0-9) Eosinophils (%) (Auto) 3 % (0-3) Basophils (%) (Auto) 1 % (0-3) Neutrophils # (Auto) 5.0 x10^3/uL (1.8-7.7) Lymphocytes # (Auto) 3.5 x10^3/uL (1.0-4.8) Monocytes # (Auto) 0.7 x10^3/uL (0.0-1.1) Eosinophils # (Auto) 0.2 x10^3/uL (0.0-0.7) Basophils # (Auto) 0.1 x10^3/uL (0.0-0.2) Prothrombin Time 12.4 SEC (11.7-14.0) Prothromb Time International Ratio 1.0 (0.8-1.1) Activated Partial Thromboplast Time 33 SEC (24-38) Sodium Level 143 mmol/L (136-145) Potassium Level 3.6 mmol/L (3.5-5.1) Chloride Level 107 mmol/L (98-107) Carbon Dioxide Level 27 mmol/L (21-32) Anion Gap 9 (6-14) Blood Urea Nitrogen 18 mg/dL (7-20) Creatinine 1.0 mg/dL (0.6-1.0) Estimated GFR (Cockcroft-Gault) 71.6 BUN/Creatinine Ratio 18 (6-20) Glucose Level 121 mg/dL (70-99) Calcium Level 8.6 mg/dL (8.5-10.1) Magnesium Level 2.0 mg/dL (1.8-2.4) Total Bilirubin 0.2 mg/dL (0.2-1.0) Aspartate Amino Transf (AST/SGOT) 17 U/L (15-37) Alanine Aminotransferase (ALT/SGPT) 17 U/L (14-59) Alkaline Phosphatase 54 U/L (46-116) Creatine Kinase 150 U/L (26-192) Creatine Kinase MB (Mass) 0.5 ng/mL (0.0-3.6) Creatine Kinase MB Relative Index % (0-4) Troponin I Quantitative < 0.017 ng/mL (0.000-0.055) < 0.017 ng/mL (0.000-0.055) < 0.017 ng/mL (0.000-0.055) LD-Ipw-K-Type Natriuretic Peptide 35 pg/mL (0-124) Total Protein 7.7 g/dL (6.4-8.2) Albumin 3.0 g/dL (3.4-5.0) Albumin/Globulin Ratio 0.6 (1.0-1.7) Lipase 104 U/L (73-393) Triglycerides Level 46 mg/dL (0-150) Cholesterol Level 169 mg/dL (0-200) LDL Cholesterol, Calculated 106 mg/dL (0-100) VLDL Cholesterol, Calculated 9 mg/dL (0-40) Non-HDL Cholesterol Calculated 115 mg/dL (0-129) HDL Cholesterol 54 mg/dL (40-60) Cholesterol/HDL Ratio 3.1 Brief Hospital Course Ms Tran is a 48yo F w/ PMHx HTN who p/w one-week history of intermittent left-sided chest pain. Reports sharp in nature and worse with deep inspiration. Denies cough. Reports shortness of breath. Reports diaphoresis. Denies nausea or vomiting. Denies leg swelling or calf tenderness. Chest pain is under her left breast and wraps around her left side and radiates posteriorly into her neck. 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 Patient with significant risk factors including family history of CAD in multiple members in there late 40s and early 50s. Patient reports sister with history of DVT. Denies trauma. Denies fever or chills. Negative CTPA noted in ED. EKG x2 reviewed both NSR. Labs show LDL 106, glucose 121 fasting and troponin x3 negative. A/P: Chest pain - this seems MSK in origin, but with her family history, age > 45 and HTN history needs further risk stratification with cardiology consultation and imaging at the very least. Echo to assess LV systolic function.Outpatient MPI HTN - Will cont meds HLD - with no other risk factors medical management is not indicated, should follow mediterranean diet. GERD - ok for H2 sue Muscular spasms - will start on flexeril and NSAIDs ECHO - The left ventricular systolic function is normal. The Ejection Fraction is 55-60%. There is normal LV segmental wall motion. Trace mitral regurgitation. There is no evidence of significant pericardial effusion. Seen by cardiology - will f/u outpatient for MPI. Muscle relaxants and NSAIDs ok Greater than 135 minutes for same day admit and d/c Discharge Information Condition at Discharge: Improved Follow Up: Weeks (1) Disposition/Orders: D/C to Home Scheduled Cyclobenzaprine Hcl (Cyclobenzaprine Hcl) 10 Mg Tablet, 1 TAB PO QHS for Left shoulder muscle spasms for 10 Days, #10 Prescribed by: WAQAS JAIME MD on 12/02/18 1434 Losartan/Hydrochlorothiazide (Losartan-Hctz 100-12.5 Mg Tab) 1 Each Tablet, 1 TAB PO DAILY, #30 Ref 5 (Reported) Entered as Reported by: CAROL WYATT on 05/09/152019 WAQAS JAIME MD Dec 02, 2018 15:59
--- NOTE | 2018-12-02 17:00 | NUR ---
Discharge Note: DEYVI ARAIZA Discharge instructions and discharge home medications reviewed with Patient and a copy given. All questions have been answered and understanding verbalized. The following instructions and handouts were given: CP, Flexeril, mms strain Discontinued lines and drains: Peripheral IV intact. Patient discharged to Home or Self Care with Spouse via Wheelchair
== END 2018-12-02 17:00 | disposition home or self-care (01) ==
LOC: ER 21:02 → 2 NORTH 22:20
PROVIDERS: ADMIT Family Medicine; ATTEND Family Medicine
DX: R07.89 Other chest pain (principal); E78.5 Hyperlipidemia, unspecified; I10 Essential (primary) hypertension; K21.9 Gastro-esophageal reflux disease without esophagitis; M62.838 Other muscle spasm; Z82.3 Family history of stroke; Z82.49 Family history of ischemic heart disease and other diseases of the circulatory system; Z90.710 Acquired absence of both cervix and uterus
CPT/HCPCS: 36415; 71275; 80053; 80061; 82553; 83690; 83735; 83880; 84484; 85025; 85610; 85730; 93005; 93306; 96374; 96375; 96376; 99284; G0378; J1200; J1885; J2270; J2405; J2765; J3010; J3490; J7030; Q9967; G0379

== ENCOUNTER → 2020-12-27 | Day surgery (SDC) | payer BC ==
[~2020-12-27] VITALS: Ht 160 cm; Wt 105.4 kg
[~2020-12-27] MED LIST changes: +CYCL10TA19 PO; +HYDROmorphone 2 MG/ML VIAL IVP PRN; +IV RINGERS,LACTATED 1000ML 1,000 ML IV SCH; +LIDOCAINE 2% PF 5 ML VIAL. ONE; +MORPHINE SULFATE 2 MG/ML INJ. IVP PRN; +ONDANSETRON PF 4 MG/2 ML VIAL. ONE; +PROCHLORPERAZINE 10 MG/2 ML VIAL. IVP PRN; +PROPOFOL 10 MG/ML (20ML) VIAL. IV ONE; +fentaNYL PF VIAL 100 MCG/2 ML VIAL IVP PRN
[2020-12-27 12:46] VITALS: BP 117/54
--- NOTE | 2020-12-27 14:12 | PDOC4 ---
PROCEDURE Procedure EGD with biopsies, dilation/colonoscopy. Indications: Heartburn/dysphagia/screen, last 10 years. Meds: per anesthesia Findings: E--Grade A at 38cm. No stricture. G--Mild diffuse erythema, antrum, biopsied. D--Normal to second portion. Dilated with 52F Gillespie w/o resistance. JONNY--normal --'Scope advanced to cecum. Prep adequate. Mucosa normal. Diverticulosis, sigmoid. Otherwise normal. Stewart. well. IMP: GERD Antral erythema. Diverticulosis Negative screening. REC: Protonix 40mg daily. Await path. F/u in 2 weeks. Repeat colonoscopy 10 years. ESTEVAN RODRIGUEZ MD Dec 27, 2020 14:12
[2020-12-27 14:43] VITALS: BP 118/78
== END | disposition home or self-care (01) ==
LOC: ENDOS 12:20
PROVIDERS: ATTEND Internal Medicine Gastroenterology
DX: Z12.11 Encounter for screening for malignant neoplasm of colon (principal); R12 Heartburn; R13.10 Dysphagia, unspecified; K21.00 Gastro-esophageal reflux disease with esophagitis, without bleeding; K29.50 Unspecified chronic gastritis without bleeding; K57.30 Diverticulosis of large intestine without perforation or abscess without bleeding; K63.89 Other specified diseases of intestine; K31.89 Other diseases of stomach and duodenum; I10 Essential (primary) hypertension; Z79.899 Other long term (current) drug therapy; Z90.710 Acquired absence of both cervix and uterus; Z98.890 Other specified postprocedural states
CPT/HCPCS: 43239; 43450; 45378; J2405; J2704

== ENCOUNTER 2021-04-12 18:28 | Emergency (ER) | payer BC ==
[~2021-04-12] VITALS: Ht 160 cm; Wt 109.0 kg
[~2021-04-12 18:28] MED LIST changes: -HYDROmorphone 2 MG/ML VIAL IVP PRN; -IV RINGERS,LACTATED 1000ML 1,000 ML IV SCH; -LIDOCAINE 2% PF 5 ML VIAL. ONE; -MORPHINE SULFATE 2 MG/ML INJ. IVP PRN; -ONDANSETRON PF 4 MG/2 ML VIAL. ONE; -PROCHLORPERAZINE 10 MG/2 ML VIAL. IVP PRN; -PROPOFOL 10 MG/ML (20ML) VIAL. IV ONE; -fentaNYL PF VIAL 100 MCG/2 ML VIAL IVP PRN
[2021-04-12 18:35] VITALS: BP 113/59
[2021-04-12] MEDS ORDERED: HYDROcodone/APAP 5/325MG 1 TAB TABLET PO ONE (19:00)
[2021-04-12] MEDS ORDERED: methylPREDNISolone SOD SUCC PF 125 MG/2 ML VIAL. IM ONE (19:00)
--- NOTE | 2021-04-12 19:27 | PHYS DOC ---
Past Medical History Past Medical History: Hypertension Additional Past Medical Histor: CARPAL TUNNEL Past Surgical History: Hysterectomy Additional Past Surgical Histo: right ankle Smoking Status: Never Smoker Alcohol Use: None Drug Use: None General Adult EDM: Chief Complaint: HIP PAIN HPI: HPI: Patient is a 51 year old female presents with a chief complaint of right hip lower extremity pain. Patient states she woke up this a.m. with pain. Pain is located in her right hamstring with radiation anteriorly towards the pelvis region and then radiates towards the knee. Patient denies any injuries. States she has had similar pain in the past but has usually resolved. Patient has taken prescription tramadol with no relief. Review of Systems: Review of Systems: Constitutional: Denies fever or chills. [] Eyes: Denies change in visual acuity. [] HENT: Denies nasal congestion or sore throat. [] Respiratory: Denies cough or shortness of breath. [] Cardiovascular: Denies chest pain or edema. [] GI: Denies abdominal pain, nausea, vomiting, bloody stools or diarrhea. [] : Denies dysuria. [] Musculoskeletal: Denies back pain or joint pain. [positive hip pain] Integument: Denies rash. [] Neurologic: Denies headache, focal weakness or sensory changes. [] Endocrine: Denies polyuria or polydipsia. [] Lymphatic: Denies swollen glands. [] Psychiatric: Denies depression or anxiety. [] Heart Score: C/O Chest Pain: N/A Risk Factors: Risk Factors: DM, Current or recent (<one month) smoker, HTN, HLP, family history of CAD, obesity. Risk Scores: Score 0 - 3: 2.5% MACE over next 6 weeks - Discharge Home Score 4 - 6: 20.3% MACE over next 6 weeks - Admit for Clinical Observation Score 7 - 10: 72.7% MACE over next 6 weeks - Early Invasive Strategies Current Medications: Current Medications Medications (Trade) Dose Ordered Sig/Dora Start Time Stop Time Status Last Admin Dose Admin Acetaminophen/ Hydrocodone Bitart (Lortab 5/325) 1 tab 1X ONCE 04/12/21 19:00 04/12/21 19:01 DC 04/12/21 19:04 1 TAB Methylprednisolone Sodium Succinate (SOLU-Medrol 125MG VIAL) 125 mg 1X ONCE 04/12/21 19:00 04/12/21 19:01 DC 04/12/21 19:04 125 MG Allergies: Allergies: Allergies Coded Allergies Type Severity Reaction Last Updated Verified No Known Drug Allergies 12/27/20 No Physical Exam: PE: Constitutional: Well developed, well nourished, no acute distress, non-toxic appearance. [] HENT: Normocephalic, atraumatic, bilateral external ears normal, oropharynx mois t, no oral exudates, nose normal. [] Eyes: PERRLA, EOMI, conjunctiva normal, no discharge. [] Neck: Normal range of motion, no tenderness, supple, no stridor. [] Cardiovascular:Heart rate regular rhythm, no murmur [] Lungs & Thorax: Bilateral breath sounds clear to auscultation [] Abdomen: Bowel sounds normal, soft, no tenderness, no masses, no pulsatile masses. [] Skin: Warm, dry, no erythema, no rash. [] Back: No tenderness, no CVA tenderness. [] Extremities: No tenderness, no cyanosis, no clubbing, ROM intact, no edema. [] Neurologic: Alert and oriented X 3, normal motor function, normal sensory function, no focal deficits noted. [] Psychologic: Affect normal, judgement normal, mood normal. [] Current Patient Data: Vital Signs: Vital Signs Date Time Temp Pulse Resp B/P (MAP) Pulse Ox O2 Delivery O2 Flow Rate FiO2 04/12/21 18:35 98.4 78 16 113/59 (77) 99 Room Air 98.4 EKG: EKG: [] Radiology/Procedures: Radiology/Procedures: [] Impression: Xray- wet read negative Course & Med Decision Making: Course & Med Decision Making Pertinent Labs and Imaging studies reviewed. (See chart for details) [] Dragon Disclaimer: Dragon Disclaimer: This electronic medical record was generated, in whole or in part, using a voice recognition dictation system. Departure Departure Impression: Primary Impression: Hip pain Additional Impression: Hip pain, right Disposition: 01 HOME / SELF CARE / HOMELESS Condition: STABLE Referrals: PATTI STONE MD (PCP) Patient Instructions: Hip Pain Scripts Prednisone (PREDNISONE) 50 Mg Tablet 1 TAB PO DAILY, #5 TAB Prov: LARISA RODRIGUEZ I DO 04/12/21 Hydrocodone/Acetaminophen (Hydrocodone-Acetamin 5-325 mg) 1 Each Tablet 1 EACH PO Q4-6HRS, #14 TAB Prov: LARISA RODRIGUEZ DO 04/12/21 LARISA RODRIGUEZ DO Apr 12, 2021 19:27
[2021-04-12] MEDS ORDERED: HYDR-2759 PO (20:04)
[2021-04-12] MEDS ORDERED: PRED50TA PO (20:04)
--- NOTE | 2021-04-12 20:55 | RAD ---
EXAM: AP pelvis, AP and lateral view right hip DATE: 04/12/2021 7:43 PM INDICATION: Reason: pain / Spl. Instructions: / History: . COMPARISON: No Prior FINDINGS: No evidence of acute fracture or dislocation. Joint spaces are preserved without significant degenera tive/proliferative change. Calcified phleboliths within the pelvis. IMPRESSION: No evidence of acute fracture or dislocation. Electronically signed by: Sebas Galdamez MD (04/12/2021 8:53 PM) [facility]
== END 2021-04-12 20:39 | disposition home or self-care (01) ==
LOC: ER 18:28
DX: M25.551 Pain in right hip (principal); M79.604 Pain in right leg; I10 Essential (primary) hypertension; Z90.710 Acquired absence of both cervix and uterus
CPT/HCPCS: 73502; 96372; 99283; J2930